=== PATIENT | female | born 1990 | race African-American/Black ===

== ENCOUNTER 2020-06-14 14:42 | Emergency (ER) | payer MEDICAID ==
[2020-06-14] MEDS ORDERED: cefTRIAXone\\ROCEPHIN 2 GM VIAL ONE (16:48)
[2020-06-14] MEDS ORDERED: Ketorolac Tromethamine 30 MG/ML VIAL ONE ×2 (17:16→17:18)
[2020-06-14 21:37] LABS: Anion Gap 15 mmol/L (10-20); BUN (Urea Nitrogen) 10 mg/dL (7.0-18.7); Calc. Creatinine Clearance 0 mL/min (70-130); Calcium 8.7 mg/dL (7.8-10.44); Carbon Dioxide 25 mmol/L (22-29); Chloride 103 mmol/L (98-107); Potassium 3.9 mmol/L (3.5-5.1); Sodium 139 mmol/L (136-145)
[2020-06-14 22:01] LABS: Glucose 58 mg/dL (70-105)
== END 2020-06-14 18:22 | disposition home or self-care (01) ==
LOC: CSHERS 14:42
DX: O23.41 Unspecified infection of urinary tract in pregnancy, first trimester (principal); O99.331 Smoking (tobacco) complicating pregnancy, first trimester; F17.210 Nicotine dependence, cigarettes, uncomplicated; Z3A.01 Less than 8 weeks gestation of pregnancy
CPT/HCPCS: 36415; 76856; 80048; 86900; 86901; 90384; 96365; 96372; 96375; J0696; J1885